=== PATIENT | female | born 1965 | race Caucasian/White ===

== ENCOUNTER 2017-04-11 13:10 | Outpatient (CLI) | payer OTHER ==
[2017-04-11 14:36] LABS: Hematocrit 40.9 % (36.0-47.0); Mean Platelet Volume 7.9 fL (7.4-10.4); Red Blood Cell (RBC) Count 4.44 mill/uL (4.20-5.40); White Blood Cell (WBC) Count 6.8 thou/uL (4.8-10.8)
[2017-04-11 14:38] LABS: Bilirubin Negative (Negative); Blood, Urine Negative (Negative); Glucose, Urine (Dipstick) Negative (Negative); Ketone, Urine Trace mg/dL (Negative); Nitrite Negative (Negative); Protein, Urine (Dipstick) Negative (Neg-Trace)
[2017-04-11 14:48] LABS: Bacteria/HPF None Seen HPF (None Seen); Hyaline Casts/LPF 0-3 HYALINE CAST LPF (0-3 Hyaline); Squamous Epithelial None Seen HPF (0-3); WBC/HPF None Seen HPF (0-3)
== END 2017-04-11 13:11 | disposition home or self-care (01) ==
LOC: LABBT 13:10
PROVIDERS: ATTEND Obstetrics & Gynecology
DX: Z01.818 Encounter for other preprocedural examination (principal); R10.31 Right lower quadrant pain
CPT/HCPCS: 81001; 85027

== ENCOUNTER 2017-04-13 05:57 | Observation (INO) | payer OTHER ==
[2017-04-11 13:39] VITALS: BMI 23.1
[2017-04-13] MEDS ORDERED: Fentanyl 250 MCG/5 ML VIAL ONE (06:18)
[2017-04-13] MEDS ORDERED: Midazolam HCl 2 mg/2 ml Vial ONE (06:18)
[2017-04-13] MEDS ORDERED: Fentanyl 100 MCG/2 ML VIAL ONE ×3 (06:18→10:42)
[2017-04-13] MEDS ORDERED: Calcium Chloride 1 GM/10 ML Abboject SYRINGE ONE (06:28)
[2017-04-13] MEDS ORDERED: Thrombin 5000 UNITS/5 ML VIAL ONE (06:28)
[2017-04-13] MEDS ORDERED: Bupivacaine/Epinephrine 0.25% 30 ML VIAL ONE (06:28)
[2017-04-13] MEDS ORDERED: CEFAZOLIN/Water 2 GM/20 ML SYRINGE ONE (07:03)
[2017-04-13] MEDS ORDERED: HYDROmorphone 2 MG/ML VIAL SLOW IVP PRN (09:45)
[2017-04-13] MEDS ORDERED: Morphine Sulfate 2 MG/ML SYRINGE SLOW IVP PRN (09:45)
[2017-04-13] MEDS ORDERED: Meperidine HCl/PF 25 MG/ML VIAL SLOW IVP PRN (09:45)
[2017-04-13] MEDS ORDERED: Promethazine HCl 25 MG/ML VIAL SLOW IVP PRN (09:45)
[2017-04-13] MEDS: Lactated Ringer's 1,000 ML IV SCH ×3 (11:25→23:51)
[2017-04-13] MEDS ORDERED: Ondansetron HCl/PF 4 MG/2 ML Vial IVP PRN (11:36)
[2017-04-13] MEDS ORDERED: Zolpidem Tartrate 5 MG TAB PO PRN (11:36)
[2017-04-13] MEDS ORDERED: diphenhydrAMINE 25 MG CAP PO PRN (11:36)
[2017-04-13] MEDS ORDERED: Bisacodyl 10 MG SUPP PR PRN (11:36)
[2017-04-13] MEDS ORDERED: Acetaminophen/Codeine 30-300mg Tablet PO PRN ×2 (11:36)
[2017-04-13] MEDS ORDERED: Simethicone Chewable 80 MG TAB PO PRN (11:36)
[2017-04-13] MEDS: Ketorolac Tromethamine 30 MG/ML VIAL IVP SCH ×2 (12:18→17:31)
[2017-04-13] MEDS ORDERED: Acetaminophen 1,000 MG in Premix Bag 1 BAG IVPB SCH (13:00)
[2017-04-13] MEDS ORDERED: Ondansetron HCl/PF 4 MG/2 ML Vial ONE (16:52)
[2017-04-13] MEDS ORDERED: ePHEDrine/0.9% NaCl/PF SYRINGE 50 mg/10 ml ONE (16:52)
[2017-04-13] MEDS ORDERED: Glycopyrrolate 0.2 MG/ML 5 ML SYRINGE ONE (16:52)
[2017-04-13] MEDS ORDERED: Dexamethasone 20 MG/5 ML VIAL ONE (16:52)
[2017-04-13] MEDS ORDERED: PROPOFOL 200 MG/20 ML VIAL ONE (16:52)
[2017-04-13] MEDS ORDERED: Lidocaine 1% PF 5 ML VIAL ONE (16:52)
[2017-04-13] MEDS ORDERED: Ketorolac Tromethamine 30 MG/ML VIAL ONE (16:52)
[2017-04-13] MEDS ORDERED: Succinylcholine Chloride 20 MG/ML 10 ml SYRINGE FS ONE (16:52)
[2017-04-14] MEDS: Ibuprofen 800 MG TAB PO SCH ×2 (00:06→09:47)
[2017-04-14 05:46] LABS: Mean Corpuscular HGB CONC 33.7 g/dL (32.0-36.0); Mean Platelet Volume 7.8 fL (7.4-10.4); Platelet Count 199 thou/uL (130-400); RBC Distribution Width 11.4 % (11.5-14.5); Red Blood Cell (RBC) Count 3.88 mill/uL (4.20-5.40); White Blood Cell (WBC) Count 10.5 thou/uL (4.8-10.8)
[2017-04-14 09:29] VITALS: BP 128/71; TEMP 99.1
--- NOTE | 2017-04-14 10:00 | OP ---
DATE OF PROCEDURE: 04/13/2017 ATTENDING STAFF PHYSICIAN: Rafael Yepez M.D. SURGEONS: 1. Rafael Yepez M.D. 2. Brian Romo M.D. PREOPERATIVE DIAGNOSES: 1. Severe right lower quadrant pain. 2. History of bowel obstruction. POSTOPERATIVE DIAGNOSES: 1. Abdominopelvic adhesions. 2. Endometriosis. 3. Chronic appendicitis. PROCEDURES PERFORMED. 1. Diagnostic laparoscopy. 2. Robotic lysis of adhesions. 3. Robotic hysterectomy. 4. Bilateral salpingectomy. 5. Appendectomy (Dr. Romo). 6. Autologous hemocyte tissue grafting (Plasmax). ANESTHESIA: General endotracheal. FINDINGS: 1. Dense adhesion in right lower quadrant from cecum and ascending colon to the anterior abdominal w all. 2. Periappendiceal adhesions with chronic appendicitis. 3. Endometriosis, fundus of uterus, right and left fallopian tubes, posterior cul-de-sac. 4. Normal ovaries. COMPLICATIONS: None. SPECIMENS REMOVED: 1. Cervix, uterus, fallopian tubes. 2. Appendix. ESTIMATED BLOOD LOSS: Less than 100 mL (combined). PROCEDURE FOLLOWS: After thorough consent and counseling, Mrs. Lynch was taken to the operating r oom and an adequate level of anesthesia was obtained by general endotracheal anesthesia. The patient was placed in the Grant stirrups in low leg position. Pelvic examination under anesthesia was perfo rmed. Findings were consistent with that in the clinical setting. The patient was noted to have a s mall uterus, which was mobile. No adnexal masses were noted. On ultrasound in the clinical setting, the patient was noted to have stool accumulation in the right lower quadrant at the level of the cec um and ascending colon. This was suggestive of chronic adhesions. The patient had a history of lillian l obstruction just over a year ago. She was exquisitely tender in the right lower quadrant. Otherwi se, there was no fixation or nodularity in the cul-de-sac. The patient was noted to have excellent s upport. The patient was then prepped and draped in usual sterile fashion for both vaginal and abdomi nal surgery. A speculum was placed in the vaginal canal and visualization of the cervix was obtained. A single-to oth tenaculum was placed on the anterior lip of the cervix for traction. The uterus sounded to 8 cm. Using Sexton dilators, serial dilatation was performed. A stay ligature of 0 Vicryl was placed on t he cervix at the 3 o'clock and 9 o'clock position. The MELECIO uterine manipulator was then placed with in the endometrial cavity and the balloon was inflated. The cervical collar was then carefully seate d around the cervix. The stay ligature was affixed to the MELCEIO uterine manipulator. A Winter was belle john in the bladder, which was noted to be draining clear urine. The vaginal balloon was inflated. A ttention was then turned to performing the outlined surgical procedures. A small infraumbilical incision was made and the Veress needle was placed transabdominally with the u sual safeguards carried out. Hanging-drop water technique was utilized to ensure proper placement of the Veress needle. Using CO2 gas as an insufflation medium in the auto insufflator, an adequate pne umoperitoneum was obtained. Initially, diagnostic laparoscopy was performed with a 5-mm scope and th e endoview trocar secondary to the patient's history of bowel obstruction. The trocar was carefully placed transabdominally with usual safeguards carried out. The trocar was easily placed with direct visualization. There was no evidence of any adhesions in the subumbilical area. The laparoscope was then carefully placed transabdominally and visualization of the abdomen and pelvis was obtained. As suspected, there were adhesions noted in the right lower quadrant. The uterus was elevated out of t he pelvis and it was noted to be small and atrophic, but there were lesions of endometriosis noted on the uterus, the fallopian tubes, and in the posterior cul-de-sac. The cecum and ascending colon wer e densely adherent to the anterior abdominal wall in the right lower quadrant, as was the appendix. The 5-mm scope was removed. The umbilical trocar was removed and the scar was extended so that a 12- mm trocar and sleeve could easily be placed to facilitate the robotic procedure. The [employer] laparo scopic camera was placed transabdominally and the upper abdomen was carefully inspected. There was n o evidence of any inadvertent bowel injury upon placement of the Veress needle or the trocars. Under direct visualization, lateral ports were placed using illumination technique to avoid vascular injur y. The patient was then docked to the robot per protocol and I assumed my operative position at the [employer] surgical console. Under direct laparoscopic visualization, robotic instruments were introduced into the abdomen and pel vis. Instrumentation used to perform the lysis of adhesions and hysterectomy included the Kleppinger bipolar forceps and the electrosurgical EndoShears. Initially, attention was focused in the right l ower quadrant and removal of the adhesions. As noted, there was a dense adhesion in the right lower quadrant directly McBurney's point. The cecum and ascending colon were adherent to the anterior abdo cody wall with filmy adhesions. Enterolysis was carefully and meticulously performed using the cold electrosurgical EndoShears. Once the colon and appendix were free from the anterior abdominal wall and sidewall, hemostasis was obtained with Bovie cauterization. The colon was returned to its normal anatomic location. Attention was then turned to performing the robotic hysterectomy and bilateral s alpingectomy. The fallopian tube was grasped on the right, crossclamped, coagulated and transected. Dissection was carried down the mesosalpinx to the tubo-ovarian ligament and vessels. The tubo-ovar melyssa ligament vessels were then crossclamped, coagulated, and transected. The right fallopian tube wa s removed from the operative field. The same procedure was performed on the left. The ureters were carefully identified on the pelvic sidewalls and noted to be traversing well out of the operative belle jong. The utero-ovarian ligament and vessels were then crossclamped, coagulated, and transected bilat erally. Using the same technique, serial pedicles were taken through the broad ligament-cardinal lig ament complex down to the level of the uterine vessels. The vesicouterine peritoneum was taken down anteriorly and inferiorly, creating a bladder flap. The bladder was carefully and meticulously remov ed from the operative planes to avoid any inadvertent bladder injury. This was carried out until the cervical collar of the uterine manipulator could easily be visualized through the endopelvic fascia. Once the bladder was clear, the end of the endopelvic fascia was circumscribed sharply using the el ectrosurgical EndoShears. The vaginal canal was then entered sharply using electrosurgical EndoShear s and the cervix and uterus were removed from the remainder of this support structures. Once free, t he cervix and uterus were introduced into the vagina to maintain the pneumoperitoneum. The pelvis wa s then irrigated with copious amounts of warm normal saline. Once again, the ureters were identified on the pelvic sidewalls and were easily visualized and noted to be traversed beyond the operative pl anes. The vaginal cuff was then closed with 2 running-locking ligatures of 3-0 Vicryl in the locked sutures. Good cuff closure and hemostasis was noted. There were several small implants of endometri osis noted in the posterior cul-de-sac and these were desiccated using the electrosurgical EndoShears . There were several small implants also noted in the anterior cul-de-sac and on the right pelvic si dewall. These lesions were also desiccated. Care was taken to ensure that the bowel and ureters wer e well out of the surgical planes when ablation of endometriosis was performed. All surgical sites w ere examined and noted to be hemostatic. Dr. Romo presented to the operating room at this junction to complete the surgery by performing la paroscopic removal of the appendix. Please see his operative report for summary. At the conclusion of his portion of the case, autologous hemocyte tissue grafting was performed, because of the extensi ve dissection and lysis of adhesions. Platelet poor plasma was injected over all surgical sites incl uding where enterolysis was performed on the right lower quadrant and over the vaginal cuff. Photodo cumentation was performed throughout the surgery. Lap, sponge, and needle counts were correct. Lakeshia mated blood loss during the entire surgical procedure was under 100 mL. At the conclusion of the raina e, the bladder was noted to be draining clear urine. A vaginal packing with Premarin cream was place d in the vagina. Lap, sponge, and needle counts were correct x3 as noted. The patient was awakened, extubated, and taken to postanesthesia care unit in good condition. Immedi ately following surgery, the family is made aware of the surgical procedure and operative findings. Questions answered to their satisfaction.
--- NOTE | 2017-04-14 12:32 | DIS ---
DATE OF ADMISSION: 04/13/2017 DATE OF DISCHARGE: 04/14/2017 ATTENDING STAFF PHYSICIAN: Rafael Yepez M.D. SURGEONS: 1. Rafael Yepez M.D. 2. Brian Romo M.D. ADMITTING DIAGNOSES: 1. Severe right lower quadrant abdominopelvic pain. 2. History of bowel obstruction. POSTOPERATIVE DIAGNOSIS: 1. Abdominal pelvic adhesions, right lower quadrant. 2. Endometriosis. 3. Chronic appendicitis. PROCEDURES PERFORMED: 1. Diagnostic laparoscopy. 2. Robotic lysis of adhesions. 3. Robotic hysterectomy. 4. Bilateral salpingectomy. 5. Appendectomy. 6. Autologous hemocyte tissue grafting (Plasmax). INSTRUCTIONS: 1. No heavy lifting greater than 15 pounds until released postoperatively. 2. No driving on pain medications. 3. Pelvic rest x6 weeks (no intercourse, douching or tampons). 4. Notify physician for temperature greater than 100.6, heavy vaginal bleeding or discharge, severe abdominal pain or back pain, signs or symptoms of incision, infection or as needed. 5. Follow up with Dr. Yepez in 2 weeks for postoperative evaluation. DISCHARGE MEDICATIONS: 1. Motrin 800 mg one p.o. q.8 hours x 3 to 4 days scheduled, then q.8 hours as needed for cramps or discomfort. 2. Tylenol #3 one p.o. q.4 hours p.r.n. pain. 3. Continue all routine meds. HOSPITAL COURSE: As follows; Ms. Shabnam Lynch is a very pleasant 51-year-old female who was referred to me by Dr. Aris Bhardwaj at the [facility] with ongoing and progressive right lower quadrant abdominopelvic pain. Shabnam was hospitalized in 12/2015 with bowel obstruction which was felt to be due to diverticulitis. This resolved with conservative medical management. However, she continued t o suffer from intermittent and progressive right lower quadrant pelvic pain. Findings on clinical ex am and ultrasound were suggestive of adhesions in the right lower quadrant and colon. For this reaso n, Shabnam was admitted to [facility] on 04/13/2017 with diagnosis of progressive right lower quadrant abdo cody pelvic pain and history of bowel obstruction. She was taken to the operating room where she un derwent diagnostic laparoscopy, robotic lysis of adhesions, robotic hysterectomy and bilateral salpin gectomy, appendectomy, and application of Plasmax without problems or complications. Please see the operative report for summary. The patient had an uneventful and uncomplicated hospital stay. She was sent to the floor shortly aft er the conclusion of her procedure and started on clear liquids which she tolerated well. Her Winter and Vag pack removed on the evening of surgery. She was able to ambulate, void and tolerate p.o. wel l. She was discharged home on the morning of the first postoperative day without any specific compla ints. She was given the above noted instructions, which she verbalized understanding. She will use ice packs on her incisions for the first week. She was given ibuprofen and Tylenol #3 for pain meds. She will follow up with me in 2 weeks for postoperative evaluation. Prior to discharge, the dagmar farrell reported she is very satisfied and appreciative of the care she received here at [facility] and she will follow up as scheduled.
--- NOTE | 2017-04-18 10:48 | OP ---
DATE OF PROCEDURE: 04/13/2017 PREOPERATIVE DIAGNOSIS: Chronic right lower quadrant pain, potential for chronic appendicitis. POSTOPERATIVE DIAGNOSIS: Chronic right lower quadrant pain, potential for chronic appendicitis. PROCEDURE: Laparoscopic appendectomy performed at time of laparoscopic hysterectomy with da Clemencia ro bot. SURGEON: Brian Romo M.D. ANESTHESIA: General. COMPLICATIONS: None. SPECIMEN: Appendix. TECHNIQUE: The patient already had laparoscopic ports placed by Dr. Yepez. I scrubbed into the proc edure, mobilized the patient's appendix up off the pelvic sidewall. Laparoscopic stapler was used to fire across the base of the appendix and reload fired across the mesoappendix. The appendix was belle john in an Endo catch bag and brought out through the 12-mm port site and sent to pathology for final diagnosis. There was no ongoing bleeding in the abdomen. Fibrin glue placed into the pelvis over th e operative site. All port sites were infiltrated using local anesthetic. All ports were removed un aida camera visualization. Pneumoperitoneum was let down. A GraNee needle and Vicryl ties used to cl ose the largest 12 mm or more fascial defects. All ports were removed under camera vision. Peritone um was let down. All incisions were irrigated and closed using 4-0 Monocryl and Dermabond. The margret ent went to recovery in stable condition. All instrument counts, needle counts, and lap counts were correct.
== END 2017-04-14 10:05 | disposition home or self-care (01) ==
LOC: SDC 05:57 → 3SW 11:34 → EDSTATUS 13:30
PROVIDERS: ADMIT Obstetrics & Gynecology; ATTEND Obstetrics & Gynecology
PROC: 0UT94ZZ Resection of Uterus, Percutaneous Endoscopic Approach (ICD-10-PCS; principal; 2017-04-14)
PROC: 0UT24ZZ Resection of Bilateral Ovaries, Percutaneous Endoscopic Approach (ICD-10-PCS; 2017-04-14)
PROC: 0UT74ZZ Resection of Bilateral Fallopian Tubes, Percutaneous Endoscopic Approach (ICD-10-PCS; 2017-04-14)
PROC: 0DTJ4ZZ Resection of Appendix, Percutaneous Endoscopic Approach (ICD-10-PCS; 2017-04-14)
DX: D25.9 Leiomyoma of uterus, unspecified (principal); N73.6 Female pelvic peritoneal adhesions (postinfective); K36 Other appendicitis; N80.2 Endometriosis of fallopian tube; N80.3 Endometriosis of pelvic peritoneum; N80.0 Endometriosis of uterus; K21.9 Gastro-esophageal reflux disease without esophagitis; I73.00 Raynaud's syndrome without gangrene; Z79.899 Other long term (current) drug therapy; Z98.890 Other specified postprocedural states
CPT/HCPCS: 36415; 81001; 85027; 88302; 88307; 96361; 96365; 96375; 96376; G0378; J0131; J1100; J1885; J2001; J2250; J2405; J2704; J3010

== ENCOUNTER 2017-07-24 13:31 | Outpatient (CLI) | payer OTHER | END 2017-07-24 13:32 | disposition home or self-care (01) | LOC: BICMAMMO 13:31 | PROVIDERS: ATTEND Obstetrics & Gynecology | DX: Z12.31 Encounter for screening mammogram for malignant neoplasm of breast (principal) | CPT/HCPCS: 77063; 77067 ==

== ENCOUNTER 2018-07-25 14:38 | Outpatient (CLI) | payer OTHER ==
--- NOTE | 2018-07-25 16:19 | MMO ---
Bilateral MAMMO Bilat Screen [facility]. CLINICAL HISTORY: Patient is 52 years old and is seen for screening. The patient has no family history of breast cancer. The patient has no personal history of cancer. VIEWS: The views performed were: bilateral craniocaudal with tomosynthesis and bilateral mediolateral oblique with tomosynthesis. FILMS COMPARED: The present examination has been compared to prior imaging studies performed at [facility] on 07/24/2017, at [facility] on 05/26/2016, and at [facility] on 01/02/2013, 01/13/2014 and 04/29/2015. MAMMOGRAM FINDINGS: There are scattered fibroglandular densities. There are stable benign appearing densities seen in both breasts. There are no suspicious masses, suspicious calcifications, or new areas of architectural distortion. IMPRESSION: THERE IS NO MAMMOGRAPHIC EVIDENCE OF MALIGNANCY. A ROUTINE FOLLOW-UP MAMMOGRAM IN 1 YEAR IS RECOMMENDED. THE RESULTS OF THIS EXAM WERE SENT TO THE PATIENT. ACR BI-RADS Category 2 - Benign finding MAMMOGRAPHY NOTE: 1. A negative mammogram report should not delay a biopsy if a dominant of clinically suspicious mass is present. 2. Approximately 10% to 15% of breast cancers are not detected by mammography. 3. Adenosis and dense breasts may obscure an underlying neoplasm.
== END 2018-07-25 14:39 | disposition home or self-care (01) ==
LOC: BICMAMMO 14:38
PROVIDERS: ATTEND Obstetrics & Gynecology
DX: Z12.31 Encounter for screening mammogram for malignant neoplasm of breast (principal)
CPT/HCPCS: 77063; 77067

== ENCOUNTER 2019-08-20 14:55 | Outpatient (CLI) | payer OTHER ==
--- NOTE | 2019-08-20 16:20 | BD ---
Exam: DEXA Bone Density 08/20/19 HISTORY: Postmenopausal screening for osteoporosis. Lumbar Spine: BMD (g/cm2) T-SCORE Z-SCORE L1 0.769 -2.0 -1.0 L2 0.829 -1.8 -0.7 L3 0.892 -1.7 -0.6 L4 0.873 -1.7 -0.5 L1-L4 0.844 -1.8 -0.7 Femoral Neck: 0.686 -1.9 -0.8 Total Femur: 0.765 -1.4 0.7 There has been interval reduction of 4.1% in the BMD of the lumbar spine and reduction of 4.65 in the BMD of the proximal humerus since 05/26/16. The ten year fracture risk for major osteoporotic fracture is 8% and for hip 0.9%. Impression: Osteopenia. POS: KUNAL
--- NOTE | 2019-08-21 07:51 | MMO ---
Bilateral MAMMO Bilat Screen [facility]. CLINICAL HISTORY: Patient is 54 years old and is seen for screening. The patient has no family history of breast cancer. The patient has no personal history of cancer. VIEWS: The views performed were: bilateral craniocaudal with tomosynthesis and bilateral mediolateral oblique with tomosynthesis. FILMS COMPARED: The present examination has been compared to prior imaging studies performed at [facility] on 07/24/2017 and 07/25/2018, and at [facility] on 05/26/2016. This study has been interpreted with the assistance of computer-aided detection. MAMMOGRAM FINDINGS: There are scattered fibroglandular densities. There are no suspicious masses, suspicious calcifications, or new areas of architectural distortion. IMPRESSION: THERE IS NO MAMMOGRAPHIC EVIDENCE OF MALIGNANCY. A ROUTINE FOLLOW-UP MAMMOGRAM IN 1 YEAR IS RECOMMENDED. THE RESULTS OF THIS EXAM WERE SENT TO THE PATIENT. ACR BI-RADS Category 1 - Negative MAMMOGRAPHY NOTE: 1. A negative mammogram report should not delay a biopsy if a dominant of clinically suspicious mass is present. 2. Approximately 10% to 15% of breast cancers are not detected by mammography. 3. Adenosis and dense breasts may obscure an underlying neoplasm. Reported by: Sergio HERBERT Electonically Signed: [id number]
== END 2019-08-20 14:56 | disposition home or self-care (01) ==
LOC: BICMAMMO 14:55
PROVIDERS: ATTEND Obstetrics & Gynecology
DX: Z12.31 Encounter for screening mammogram for malignant neoplasm of breast (principal); Z13.820 Encounter for screening for osteoporosis; M81.0 Age-related osteoporosis without current pathological fracture; M85.89 Other specified disorders of bone density and structure, multiple sites; Z79.899 Other long term (current) drug therapy; Z79.890 Hormone replacement therapy
CPT/HCPCS: 77063; 77067; 77080

== ENCOUNTER 2020-08-20 13:10 | Outpatient (CLI) | payer OTHER | END 2020-08-20 13:11 | disposition home or self-care (01) | LOC: BICMAMMO 13:10 | PROVIDERS: ATTEND Obstetrics & Gynecology | DX: Z12.31 Encounter for screening mammogram for malignant neoplasm of breast (principal) | CPT/HCPCS: 77063; 77067 ==

== ENCOUNTER 2021-08-29 13:24 | Outpatient (CLI) | payer BC | END 2021-08-29 13:25 | disposition home or self-care (01) | LOC: BICMAMMO 13:24 | PROVIDERS: ATTEND Obstetrics & Gynecology | DX: Z12.31 Encounter for screening mammogram for malignant neoplasm of breast (principal) | CPT/HCPCS: 77063; 77067 ==